=== PATIENT | male | born 1975 | race Hispanic/Latino ===

== ENCOUNTER 2016-10-21 14:21 | Emergency (ER) | payer OTHER, SELFPAY ==
[2016-10-21 14:21] VITALS: BMI 34.9
[2016-10-21 14:35] VITALS: RESP 18; TEMP 98; O2SAT 96
--- NOTE | 2016-10-21 14:45 | ED PDOC ---
Arrival/HPI - General Historian: Patient - History of Present Illness Time/Duration: Other (see hpi) Context: Home - General Chief Complaint: Abdominal Pain Time Seen by Provider: 10/21/16 14:43 - History of Present Illness Narrative History of Present Illness (Text): 10/21/16 14:45 This 41 yo male presents to this ED c/o right flank pain since this morning. Patient admits mild nausea. Denies vomiting, diarrhea, sob, cp, rectal bleeding , trauma, dominguez, or abnormal gait. (Ewelina Chowdary) Past Medical History - Provider Review Nursing Documentation Reviewed: Yes - Infectious Disease Hx of Infectious Diseases: None - Tetanus Immunization Tetanus Immunization: Unknown - Cardiac Hx Hyperlipemia: Yes - Psychiatric Hx Depression: No Hx Emotional Abuse: No Hx Physical Abuse: No Hx Substance Use: No - Past Surgical History Past Surgical History: No Previous - Anesthesia Hx Anesthesia: No Hx Anesthesia Reactions: No Hx Malignant Hyperthermia: No - Suicidal Assessment Feels Threatened In Home Enviroment: No Family/Social History - Physician Review Nursing Documentation Reviewed: Yes Family/Social History: Other (non-contributory) Smoking Status: Never Smoked Hx Alcohol Use: No Hx Substance Use: No Hx Substance Use Treatment: No Allergies/Home Meds Allergies/Adverse Reactions: Allergies No Known Allergies Allergy (Verified 12/02/12 09:07) Review of Systems - Review of Systems Constitutional: Normal. absent: Fatigue, Weight Change, Fevers Eyes: Normal ENT: Normal Respiratory: Normal Cardiovascular: Normal Gastrointestinal: Abdominal Pain, Nausea. absent: Constipation, Diarrhea, Vomiting Genitourinary Male: Normal. absent: Dysuria, Frequency, Hematuria Musculoskeletal: Normal. absent: Back Pain Skin: Normal Neurological: Normal Endocrine: Normal Hemo/Lymphatic: Normal Psychiatric: Normal Physical Exam Temperature: Afebrile Blood Pressure: Normal Pulse: Regular Respiratory Rate: Normal Appearance: Positive for: Well-Appearing, Non-Toxic, Comfortable Pain Distress: None Mental Status: Positive for: Alert and Oriented X 3 - Systems Exam Head: Present: Atraumatic, Normocephalic Pupils: Present: PERRL Extroacular Muscles: Present: EOMI Conjunctiva: Present: Normal Mouth: Present: Moist Mucous Membranes Neck: Present: Normal Range of Motion Respiratory/Chest: Present: Clear to Auscultation, Good Air Exchange. No: Respiratory Distress, Accessory Muscle Use Cardiovascular: Present: Regular Rate and Rhythm, Normal S1, S2. No: Murmurs Abdomen: Present: Tenderness (mild right flank tenderness), Normal Bowel Sounds. No: Distention, Peritoneal Signs, Rebound, Guarding Back: Present: Normal Inspection. No: CVA Tenderness Upper Extremity: Present: Normal Inspection. No: Cyanosis, Edema Lower Extremity: Present: Normal Inspection. No: Edema Neurological: Present: GCS=15, CN II-XII Intact, Speech Normal Skin: Present: Warm, Dry, Normal Color. No: Rashes Psychiatric: Present: Alert, Oriented x 3, Normal Insight, Normal Concentration Vital Signs Temp Pulse Resp BP Pulse Ox 10/21/16 17:01 74 18 125/74 96 10/21/16 15:27 79 18 127/89 96 10/21/16 14:34 98.0 F 86 18 129/90 96 Medical Decision Making Re-evaluation Time: 17:12 Reassessment Condition: Re-examined, Improved - Lab Interpretations I have reviewed the lab results: Yes Interpretation: No clinic. lab abnormalty ED Course and Treatment: I was available for consultation during PA evaluation. The chart was reviewed by me, and I agree with disposition. The documented history was done by the physician java grails developer. The documented procedures were done by the physician java grails developer. (Raphael Renae) 10/21/16 17:12 Re-evaluation. Patient feels better. Discussed results and plan with patient who expresses understanding. All questions answered and there is agreement with the plan to discharge home with instructions. Patient stable for discharge. Return if symptoms persist or worsen. Patient stated flank pain has improved, and he wishes to be discharge home soon. Patient was recommended to f/u urologist, and to take medication as instructed. To return to emergency if symptoms worsen. (Ewelina Chowdary) - Lab Interpretations Microbiology Results: Microbiology Results 10/21/16 16:20 Urine Urine Culture - Final No Growth (<1,000 CFU/ML) Lab Results: 10/21/16 14:55 10/21/16 14:55 Lab Results 10/21/16 16:20: Urine Color Yellow, Urine Appearance Clear, Urine pH 5.5, Ur Specific [place] >= 1.030, Urine Protein Trace H, Urine Glucose (UA) Negative, Urine Ketones Negative, Urine Blood Small H, Urine Nitrate Negative, Urine Bilirubin Negative, Urine Urobilinogen 0.2, Ur Leukocyte Esterase Negative, Urine RBC 1 - 3, Urine WBC 2 - 5, Ur Epithelial Cells 0 - 2, Urine Bacteria Few 10/21/16 14:55: Sodium 142, Potassium 4.1, Chloride 107, Carbon Dioxide 23, Anion Gap 16, BUN 12, Creatinine 1.1, Est GFR ( Amer) > 60, Est GFR (Non- Af Amer) > 60, Random Glucose 126 H, Calcium 9.2, Total Bilirubin 1.1, AST 36, ALT 55, Alkaline Phosphatase 70, Total Protein 7.6, Albumin 4.5, Globulin 3.1, Albumin/Globulin Ratio 1.5, Lipase 40 10/21/16 14:55: WBC 14.7 H, RBC 5.68, Hgb 16.8, Hct 46.6, MCV 82.0, MCH 29.6, MCHC 36.1, RDW 13.2, Plt Count 269, MPV 10.6, Gran % 88.2 H, Lymph % (Auto) 7.8 L, [place] % (Auto) 3.7, Eos % (Auto) 0.2 L, Baso % (Auto) 0.1, Gran # 12.95 H, Lymph # 1.1 L, [place] # 0.5, Eos # 0.0, Baso # 0.01 - RAD Interpretation Narrative RAD Interpretations (Text): 10/21/16 15:25 Accession No. : [id number] Patient Name / ID : ALLEN PETERSEN / [id number] Exam Date : 10/21/2016 14:54:40 ( Approved ) Study Comment : Sex / Age : M / 41Y Creator : Jorge Alberto Orr MD Dictator : Jorge Alberto Orr MD [employer] Machine Operator : Detective : Jorge Alberto Orr MD Approver2 : Report Date : 10/21/2016 15:23:28 My Comment : This report is currently processing and HAS NOT BEEN OFFICIALLY SIGNED BY THE PHYSICIAN - ESTIMATED TIME OF APPROVAL IS 10/21/2016 15:28. PROCEDURE: CT Abdomen and Pelvis without intravenous contrast HISTORY: right flank pain COMPARISON: None. TECHNIQUE: Without contrast.. Contrast Dose: Radiation dose: Total exam DLP = 1202 mGy-cm. This CT exam was performed using one or more of the following dose reduction techniques: Automated exposure control, adjustment of the mA and/or kV according to patient size, and/or use of iterative reconstruction technique. FINDINGS: LOWER THORAX: Unremarkable. LIVER: Unremarkable. No gross lesion or ductal dilatation. GALLBLADDER AND BILE DUCTS: Unremarkable. PANCREAS: Unremarkable. No gross lesion or ductal dilatation. SPLEEN: Unremarkable. ADRENALS: Unremarkable. No mass. KIDNEYS AND URETERS: There is a 3 mm stone in the right UVJ near the internal orifice of the bladder. There is moderate hydronephrosis and perinephric stranding on the right. The findings are best seen on axial image 156 and coronal image 74 VASCULATURE: Unremarkable. No aortic aneurysm. BOWEL: Unremarkable. No obstruction. No gross mural thickening. APPENDIX: Unremarkable. Normal appendix. PERITONEUM: Unremarkable. No free fluid. No free air. LYMPH NODES: Unremarkable. No enlarged lymph nodes. BLADDER: Unremarkable. REPRODUCTIVE: Unremarkable. BONES: No acute fracture. OTHER FINDINGS: None. IMPRESSION: There is a 3 mm stone in the right UVJ near the internal orifice of the bladder. There is moderate hydronephrosis and perinephric stranding on the right. (Ewelina Chowdary) Radiology Orders: 10/21/16 14:43 ABD & PELVIS W/O PO OR IV CONT [CT] Stat - Medication Orders Current Medication Orders: Discontinued Medications Sodium Chloride (Sodium Chloride 0.9%) 1,000 mls @ 999 mls/hr IV .Q1H1M STA Stop: 10/21/16 15:49 Last Admin: 10/21/16 14:51 Dose: 999 mls/hr Sodium Chloride (Sodium Chloride 0.9%) 1,000 mls @ 999 mls/hr IV .Q1H1M STA Stop: 10/21/16 17:02 Last Admin: 10/21/16 16:22 Dose: 999 mls/hr Ketorolac Tromethamine (Toradol) 15 mg IVP STAT STA Stop: 10/21/16 14:45 Last Admin: 10/21/16 14:51 Dose: 15 mg Morphine Sulfate (Morphine) 4 mg IVP STAT STA Stop: 10/21/16 16:04 Last Admin: 10/21/16 16:22 Dose: 4 mg Ondansetron HCl (Zofran Inj) 4 mg IVP STAT STA Stop: 10/21/16 14:46 Last Admin: 10/21/16 14:51 Dose: 4 mg Ondansetron HCl (Zofran Inj) 4 mg IVP STAT STA Stop: 10/21/16 16:04 Last Admin: 10/21/16 16:22 Dose: 4 mg Tamsulosin HCl (Flomax) 0.4 mg PO STAT STA Stop: 10/21/16 16:04 Last Admin: 10/21/16 16:22 Dose: 0.4 mg Disposition/Present on Arrival - Present on Arrival Any Indicators Present on Arrival: No History of DVT/PE: No History of Uncontrolled Diabetes: No Urinary Catheter: No History of Decub. Ulcer: No History Surgical Site Infection Following: None - Disposition Have Diagnosis and Disposition been Completed?: Yes Disposition Time: 17:13 Patient Plan: Discharge - Disposition Diagnosis: Ureterolithiasis Disposition: HOME/ ROUTINE Condition: GOOD Discharge Instructions (ExitCare): Ureteral Stones (ED) Additional Instructions: Call Dr. Villa Urologist for follow up visit in 1-2 days. Take medication as instructed with food. Return to emergency if symptoms worsen. Prescriptions: oxyCODONE/Acetaminophen [Percocet 5/325 mg Tab] 1 tab PO TID #10 tab Tamsulosin HCl [Flomax] 0.4 mg PO DAILY #6 cap.er.24h Referrals: Joe ECHEVARRIA,Dorian Aguirre MD [Primary Care Provider] - Follow up with primary Des Villa MD [Staff Provider] - Follow up with primary Forms: [facility] (Kyr[place]z), WORK NOTE
[2016-10-21] MEDS ORDERED: Sodium Chloride 0.9% 1,000 ML IV STA ×2 (14:49→16:02)
[2016-10-21 15:00] LABS: BASO # 0.01 K/mm3 (0.0-2.0); BASO % 0.1 % (0.0-3.0); EOS % 0.2 % (1.5-5.0); GRAN # 12.95 (1.4-6.5); GRAN % 88.2 % (50.0-68.0); HEMATOCRIT 46.6 % (42.0-52.0); LYMPH # 1.1 (1.2-3.4); LYMPH % 7.8 % (22.0-35.0); MEAN CORPUSCULAR HEMOGLOBIN 29.6 pg (25.0-35.0); MEAN CORPUSCULAR HGB CONC 36.1 g/dl (31.0-37.0); MEAN PLATELET VOLUME 10.6 fl (7.0-11.0); MONO # 0.5 (0.1-0.6); MONO % 3.7 % (1.0-6.0); RED CELL DISTRIBUTION WIDTH 13.2 % (11.5-14.5); WHITE BLOOD COUNT 14.7 10^3/ul (4.5-11.0)
[2016-10-21 15:12] LABS: ALB/GLOB RATIO 1.5 (1.1-1.8); ALKALINE PHOSPHATASE 70 U/L (38-126); ALT/SGPT 55 U/L (7-56); AST/SGOT 36 U/L (17-59); BILIRUBIN,TOTAL 1.1 mg/dL (0.2-1.3); BLOOD UREA NITROGEN 12 mg/dL (7-21); CALCIUM 9.2 mg/dL (8.4-10.5); CARBON DIOXIDE 23 mmol/L (21-33); CHLORIDE 107 mmol/L (98-107); GFR AFRICAN-AMERICAN > 60; GLUCOSE,RANDOM 126 mg/dL (70-110); LIPASE 40 U/L (23-300); POTASSIUM 4.1 mmol/L (3.6-5.0); SODIUM 142 mmol/L (132-148); TOTAL PROTEIN 7.6 g/dL (5.8-8.3)
--- NOTE | 2016-10-21 15:24 | CT ---
PROCEDURE: CT Abdomen and Pelvis without intravenous contrast HISTORY: right flank pain COMPARISON: None. TECHNIQUE: Without contrast.. Contrast Dose: Radiation dose: Total exam DLP = 1202 mGy-cm. This CT exam was performed using one or more of the following dose reduction techniques: Automated exposure control, adjustment of the mA and/or kV according to patient size, and/or use of iterative reconstruction technique. FINDINGS: LOWER THORAX: Unremarkable. LIVER: Unremarkable. No gross lesion or ductal dilatation. GALLBLADDER AND BILE DUCTS: Unremarkable. PANCREAS: Unremarkable. No gross lesion or ductal dilatation. SPLEEN: Unremarkable. ADRENALS: Unremarkable. No mass. KIDNEYS AND URETERS: There is a 3 mm stone in the right UVJ near the internal orifice of the bladder. There is moderate hydronephrosis and perinephric stranding on the right. The findings are best seen on axial image 156 and coronal image 74 VASCULATURE: Unremarkable. No aortic aneurysm. BOWEL: Unremarkable. No obstruction. No gross mural thickening. APPENDIX: Unremarkable. Normal appendix. PERITONEUM: Unremarkable. No free fluid. No free air. LYMPH NODES: Unremarkable. No enlarged lymph nodes. BLADDER: Unremarkable. REPRODUCTIVE: Unremarkable. BONES: No acute fracture. OTHER FINDINGS: None. IMPRESSION: There is a 3 mm stone in the right UVJ near the internal orifice of the bladder. There is moderate hydronephrosis and perinephric stranding on the right.
[2016-10-21] MEDS ORDERED: Morphine 4 mg/ml ISec IVP STA (16:03)
[2016-10-21 16:47] LABS: PH,URINE 5.5 (4.7-8.0); URINE BILIRUBIN NEGATIVE (NEGATIVE); URINE BLOOD SMALL (NEGATIVE); URINE GLUCOSE (UA) NEGATIVE (NEGATIVE); URINE KETONE NEGATIVE (NEGATIVE); URINE LEUKOCYTE ESTERASE NEGATIVE Leu/uL (NEGATIVE); URINE PROTEIN TRACE mg/dL (<30 mg/dL); URINE UROBILINOGEN 0.2 E.U./dL (<1 E.U./dL)
[2016-10-21 16:49] LABS: URINE APPEARANCE CLEAR (CLEAR); URINE COLOR YELLOW (YELLOW)
[2016-10-21 17:01] VITALS: BP 125/74; PULSE 74
[2016-10-21 17:01] LABS: URINE BACTERIA FEW (NEG); URINE EPITHELIAL CELLS 0 - 2 /hpf (0-5)
== END 2016-10-21 17:47 | disposition home or self-care (01) ==
LOC: ED 14:21
DX: N20.1 Calculus of ureter (principal)
CPT/HCPCS: 74176; 80053; 81001; 83690; 85025; 87086; 96374; 96375; 96376; 99283; J1885; J2270; J2405; J7040